=== PATIENT | male | born 1975 | race Caucasian/White ===

== ENCOUNTER 2016-08-16 08:15 | Emergency (ER) | payer MEDICAID ==
[~2016-08-16] VITALS: Ht 162.6 cm; Wt 72.6 kg
[2016-08-16 08:54] VITALS: BP 148/93
== END 2016-08-16 08:53 | disposition home or self-care (01) ==
LOC: ED 08:15
DX: S83.411A Sprain of medial collateral ligament of right knee, initial encounter (principal); X58.XXXA Exposure to other specified factors, initial encounter; Y93.89 Activity, other specified; Y99.8 Other external cause status; Y92.89 Other specified places as the place of occurrence of the external cause